=== PATIENT | female | born 1980 | race Caucasian/White ===

== ENCOUNTER → 2019-10-08 08:42 | Outpatient (CLI) | payer BC, SELFPAY ==
--- NOTE | ~2019-10-08 | US_ITS ---
EXAMINATION: US pelvic complete DATE: 10/08/2019 09:04 INDICATION: Menorrhagia TECHNIQUE: Multiple transabdominal sonographic images of the pelvis were obtained. COMPARISON: None. FINDINGS: The uterus measures 10.8 x 4.3 x 5.6 cm. The endometrial complex measures 7 mm. The right o vary measures 3.2 x 2.0 x 2.7 cm. The left ovary measures 2.4 x 2.2 x 2.6 cm. There is normal vascula r flow in the ovaries. There is no free fluid in the pelvis. IMPRESSION: 1. No sonographic correlate for the patient's symptoms. Reviewed, dictated and finalized at location A.
== END ==
PROVIDERS: PCP Physician Assistant; Visit Provider Physician Assistant
DX: N92.1 Excessive and frequent menstruation with irregular cycle (principal)
CPT/HCPCS: 76856

== ENCOUNTER 2020-01-14 02:30 | Outpatient (CLI) | payer BC, SELFPAY ==
[2020-01-14 18:24] LABS: SARS-CoV-2 RNA PCR Negative
== END 2020-01-14 02:31 | disposition home or self-care (01) ==
LOC: ANHCOVIDDT 02:30
PROVIDERS: PCP Physician Assistant; Visit Provider Obstetrics & Gynecology
DX: Z01.812 Encounter for preprocedural laboratory examination (principal); Z20.828 Contact with and (suspected) exposure to other viral communicable diseases
CPT/HCPCS: 87635; C9803; U0003

== ENCOUNTER 2020-01-16 00:57 | Day surgery (SDC) | payer BC, SELFPAY ==
[2020-01-07 11:44] VITALS: BMI 35.4
[2020-01-16] VITALS (12 sets, daily range): BP systolic 113–135; BP diastolic 58–93; PULSE 59–78; RESP 12–20; TEMP 36.2–36.6; O2SAT 96–100
--- NOTE | 2020-01-16 11:39 | P.HP_ITS ---
History of Present Illness History of Present Illness Consent: Risks, benefits, and alternatives have been discussed and questions answered. Patient agrees to proceed with procedure. Chief complaint: Menorrhagia, Desires Sterilization Narrative: Marlin Hilliard is a 39 year old female A1 with heavy menstrual cycles and desires permanent sterilization. Patient declines hormone therapy. [facility] Past Medical History Medical History (Updated 01/16/20 @ 11:41 by Matt Alonzo MD) Abnormal uterine bleeding (AUB) Sterilization Surgical History Surgical History (Updated 01/16/20 @ 11:41 by Matt Alonzo MD) History of cholecystectomy Social History Social History Smoking status: Never smoker Spiritual care concerns: No Meds Home Medications and Allergies Home Medications Medication Instructions Recorded Confirmed Type Leg Cramp Supplement 1 cap PO DAILY 01/07/20 History cetirizine 10 mg PO DAILY 01/07/20 01/07/20 History Allergies Allergy/AdvReac Type Severity Reaction Status Date / Time No Known Allergies Allergy Verified 01/07/20 11:45 Exam Const: General: no acute distress Resp: Auscultation: clear to auscultation bilaterally Cardio: Rate: regular rate Rhythm: regular rhythm GI: GI Palp: Yes Soft to palpation Assessment and Plan Assessment and plan (1) History of cholecystectomy: Code(s): Z90.49 - Acquired absence of other specified parts of digestive tract Status: Acute (2) Abnormal uterine bleeding (AUB): Code(s): N93.9 - Abnormal uterine and vaginal bleeding, unspecified Status: Acute Assessment and Plan: scheduled for laparoscopic bilateral salpingectomy and hysteroscopy with mary ablation. Risk and benefits reviewed with patient. (3) Sterilization: Code(s): Z30.2 - Encounter for sterilization Status: Acute
--- NOTE | 2020-01-16 11:43 | WPDHPUPDATE1 ---
History and Physical Update Update Date/Time: 01/16/20 11:43 History and Physical has been reviewed, including an updated exam of the patient. There are NO changes in the patient's condition. Risks, benefits, and alternatives have been discussed and questions answered. Patient agrees to proceed with procedure.
[2020-01-16] MEDS: ACETAMINOPHEN 500 MG TABLET 1000 MG PO (13:20)
--- NOTE | 2020-01-16 13:21 | WPDANESEPPF ---
Anes - Initial Pre Proc Eval Procedure: Operation Date: 01/16/20 15:00 Proposed Procedures p Hysteroscopy,Brittani Ablation - Matt Alonzo MD s Laparoscopy, Bilateral Salpingectomy - Matt Alonzo MD Date/Time: 01/16/20 13:21 Surgeon: Matt Alonzo MD Pre Op Diagnosis: Menorrhagia, Desires Sterilization Patient Data Age: 39 Gender: F Height: 5 ft 3 in Weight: 90.72 kg Allergies Allergy/AdvReac Type Severity Reaction Status Date / Time No Known Allergies Allergy Verified 01/07/20 11:45 Home Medications Medication Instructions Recorded Confirmed Type Leg Cramp Supplement 1 cap PO DAILY 01/07/20 History cetirizine 10 mg PO DAILY 01/07/20 01/07/20 History Patient hx anesthesia problems: none Family hx anesthesia problems: none PMFSH Past Medical History Medical History (Updated 01/16/20 @ 13:21 by Paul Maguire MD) Abnormal uterine bleeding (AUB) Anxiety Migraine Sterilization Surgical History Surgical History (Updated 01/16/20 @ 11:41 by Matt Alonzo MD) History of cholecystectomy Social History Social History Smoking status: Never smoker Spiritual care concerns: No Anes - Eval Final PreProcedure Day of Procedure 01/16/20 13:21 Patient weight: overweight Heart: regular rate and rhythm Lungs: clear to auscultation Airway: Mallampati scale class III Neurological: alert and oriented Last oral intake: >/= 8 hours ASA classification: II Emergent: no Anesthetic plan: proceed Anesthesia type and monitoring: general ETT and standard monitoring Informed Consent: The patient's anesthetic plan and its attendant risks and benefits were discussed with the patient/family/POA. Questions were solicited and answers provided to the satisfaction of the patient/family/POA.
[2020-01-16] MEDS: LACTATED RINGERS 1,000 ML 30 ML IV CONT ×2 (13:25→15:18)
[2020-01-16] MEDS: KETOROLAC 15 MG/ML VIAL (*BKC) IV PUSH (13:28)
--- NOTE | 2020-01-16 15:22 | SUR.OPER ---
450 in 400 out hysteroscope irrigation
[2020-01-16] MEDS: ONDANSETRON INJ 4 MG/2 ML VIAL IV PUSH (16:05)
[2020-01-16] MEDS: diphenhydrAMINE HCl INJ 50 MG/ML VIAL 25 MG IV PUSH (16:18)
[2020-01-16] MEDS: fentaNYL CITRATE INJ (*CRX) 100 MCG/2 ML VIAL 25 MCG IV PUSH ×2 (16:20→17:40)
--- NOTE | 2020-01-17 10:52 | P.OP_ITS ---
Procedure Note - Detailed Date of procedure: 01/17/20 Pre-op diagnosis: Menorrhagia, Desires Sterilization Post-op diagnosis: same Procedure performed: Laparoscopic bilateral salpingectomy and hysteroscopy with the nerve ablation Description of procedure: patient is a 39-year-old female presented for desiring permanent sterilization and menorrhagia. patient is taken to the operating room with IV running for parametria the normal sterile fashion and placed in a dorsal lithotomy position. A bivalve speculum was placed into the vagina and the anterior lip of the cervix was grasped with a single-tooth tenaculum. The uterus was sounded to 8cm. An uterine manipulator was inserted into the cervix. The bivalve speculum was removed. Prior to placing the speculum the bladder which drained 50cc. attention was then turned to the abdom en a 5mm subumbilical incision was made through this care with scalpel. The Veress needle was inserted into the peritoneal cavity and insufflation revealed an opening pressure of [id number] and the peritoneal cavity was then insufflated with CO2 gas to a maximum pressure of 15 the Veress needle was removed and a 5mm mm trocar was introduced without difficulty into the peritoneal cavity through this site. The 5mm laparoscoped was then introduced and visualization confirmed of peritoneal cavity and grossly normal uterus tubes and ovaries. Two 5mm trocars were placed on the right and left lower quadrants under direct visualization. The right tube was grasped at the fimbriated end and the Harmonic scalpel was used to transect and ligate the right tube. Attention was then turned to the left tube which was grasped with the graspers transected and ligated. The hemostasis was assured. The trocars were removed under direct visualization the laparoscope and the umbilical trocar was then removed. The incisions were closed with 4 Vicryl suture. Attention was then turned to the vagina the bypass at home was replaced the uterine manipulator was removed and the anterior lip of the cervix was regrasped with a 9mm. The cervix was dilated with dilators and 8 hysteroscope was introduced noted normal uterine cavity the benefit device was then activated and passed on the 1st attempt. The uterine cavity length was set to 4. The ablation was successful. A hysteroscope was reintroduced and noted ablated ablated cavity. The instruments were removed from the vagina hemostasis was assured. The patient tolerated the procedure well sponge and needle counts were correct x2. Anesthesia: GLMA Surgeon: Matt Alonzo MD Estimated blood loss (mL): 10 Urine output (mL): 50 Drains: No Packing: No Pathology: yes Complications: None Condition: stable Disposition: PACU Findings: Grossly normal tube and ovaries.
== END 2020-01-16 18:50 | disposition home or self-care (01) ==
PROVIDERS: PCP Physician Assistant; Visit Provider Obstetrics & Gynecology
PROC: 0U5B8ZZ Destruction of Endometrium, Via Natural or Artificial Opening Endoscopic (ICD-10-PCS; CPT 58563; principal; 2020-01-16 15:00)
PROC: (CPT 49320; 2020-01-16 15:00)
DX: N93.9 Abnormal uterine and vaginal bleeding, unspecified (principal); Z30.2 Encounter for sterilization; N83.8 Other noninflammatory disorders of ovary, fallopian tube and broad ligament; Z90.49 Acquired absence of other specified parts of digestive tract
CPT/HCPCS: 58661; 58563; 88302; A9270; J1100; J1200; J1885; J2250; J2405; J2704; J2710; J3010; J7030; J7120

== ENCOUNTER 2020-03-23 13:29 | Outpatient (CLI) | payer BC, SELFPAY | END 2020-03-23 13:30 | disposition home or self-care (01) | LOC: ANHSURGERY 13:32 | PROVIDERS: PCP Physician Assistant; Visit Provider Obstetrics & Gynecology | DX: Z01.818 Encounter for other preprocedural examination (principal); N93.9 Abnormal uterine and vaginal bleeding, unspecified | CPT/HCPCS: 36415; 86850; 86900; 86901 ==

== ENCOUNTER 2020-03-26 02:23 | Outpatient (CLI) | payer BC, SELFPAY ==
[2020-03-26 18:46] LABS: SARS-CoV-2 RNA PCR Negative
== END 2020-03-26 02:24 | disposition home or self-care (01) ==
LOC: ANHCOVIDDT 02:23
PROVIDERS: PCP Physician Assistant; Visit Provider Obstetrics & Gynecology
DX: Z01.818 Encounter for other preprocedural examination (principal); Z20.828 Contact with and (suspected) exposure to other viral communicable diseases
CPT/HCPCS: 87635; C9803; U0003

== ENCOUNTER 2020-03-29 01:03 | Day surgery (SDC) | payer BC, SELFPAY ==
[2020-03-22 10:29] VITALS: BMI 33.7
[2020-03-29] VITALS (15 sets, daily range): BP systolic 99–126; BP diastolic 57–86; PULSE 68–88; RESP 12–20; TEMP 36.6–36.9; O2SAT 94–100
--- NOTE | 2020-03-29 11:36 | P.HP_ITS ---
H&P: HPI History of Present Illness Date/Time: 03/29/20 11:36 Chief complaint: Abnormal Uterine Bleeding Narrative: Marlin Hilliard is a 39 year old female A1 with a history of heavy abnormal bleeding s/p tubal with Ablation. Patient presented with complai nts no improvement and bleeding and desires hysterectomy. Review of Systems Review of Systems: All systems reviewed & are unremarkable except as noted in HPI and below PMFSH Past Medical History Medical History (Updated 01/16/20 @ 13:21 by Paul Maguire MD) Abnormal uterine bleeding (AUB) Anxiety Migraine Sterilization Surgical History Surgical History History of cholecystectomy Social History Social History Smoking status: Never smoker Living arrangements: with family Spiritual care concerns: No Meds Home Medications and Allergies Home Medications Medication Instructions Recorded Confirmed Type No Home Medications 03/22/20 03/22/20 History Allergies Allergy/AdvReac Type Severity Reaction Status Date / Time No Known Allergies Allergy Verified 03/22/20 10:15 Exam Const: General: well developed Resp: Auscultation: clear to auscultation bilaterally : Speculum Exam - Vagina: normal appearance of the vagina Speculum Exam - Cervix: normal appearance of the cervix Bimanual exam- vagina & uterus: boggy Bimanual Exam- Adnexa, other: normal adnexae Assessment and Plan Assessment and plan (1) Abnormal uterine bleeding (AUB): Code(s): N93.9 - Abnormal uterine and vaginal bleeding, unspecified Status: Acute Assessment and Plan: scheduled for a laparoscopic assisted vaginal hysterectomy risk and benefits reveiwed in detail including bleeding infection trauma to surrounding organs and anesthesia. Patient agrees to proceed.
--- NOTE | 2020-03-29 12:58 | WPDHPUPDATE1 ---
History and Physical Update Update Date/Time: 03/29/20 12:58 History and Physical has been reviewed, including an updated exam of the patient. There are NO changes in the patient's condition. Risks, benefits, and alternatives have been discussed and questions answered. Patient agrees to proceed with procedure.
[2020-03-29] MEDS: ACETAMINOPHEN 500 MG TABLET 1000 MG PO ×2 (13:10→23:33)
[2020-03-29] MEDS: LACTATED RINGERS 1,000 ML 30 ML IV CONT ×2 (13:28→16:10)
[2020-03-29] MEDS: KETOROLAC 15 MG/ML VIAL (*BKC) IV PUSH (13:28)
--- NOTE | 2020-03-29 13:28 | WPDANESEPPF ---
Anes - Initial Pre Proc Eval Procedure: Operation Date: 03/29/20 14:30 Proposed Procedures p Laparoscopic Assisted Vaginal Hysterectomy - Matt Alonzo MD Date/Time: 03/29/20 13:28 Surgeon: Matt Alonzo MD Pre Op Diagnosis: Abnormal Uterine Bleeding Patient Data Age: 39 Gender: F Height: 1.6 m Weight: 100.2 kg Last Vital Signs Temp 36.6 C 03/29/20 12:50 Pulse 80 03/29/20 12:50 Resp 14 03/29/20 12:50 BP 126/86 03/29/20 12:50 Pulse Ox 100 03/29/20 12:50 Allergies Allergy/AdvReac Type Severity Reaction Status Date / Time No Known Allergies Allergy Verified 03/29/20 13:10 Home Medications Medication Instructions Recorded Confirmed Type No Home Medications 03/22/20 03/29/20 History Patient hx anesthesia problems: none Family hx anesthesia problems: none PMFSH Past Medical History Medical History (Updated 01/16/20 @ 13:21 by Paul Maguire MD) Abnormal uterine bleeding (AUB) Anxiety Migraine Sterilization Surgical History Surgical History History of cholecystectomy Social History Social History Smoking status: Never smoker Living arrangements: with family Spiritual care concerns: No Anes - Eval Final PreProcedure Day of Procedure 03/29/20 13:28 Patient weight: obese Heart: regular rate and rhythm Lungs: clear to auscultation and normal air movement Airway: Mallampati scale class 1 Neurological: alert and oriented Last oral intake: >/= 8 hours ASA classification: II Emergent: no Anesthetic plan: proceed Anesthesia type and monitoring: general ETT and standard monitoring Informed Consent: The patient's anesthetic plan and its attendant risks and benefits were discussed with the patient/family/POA. Questions were solicited and answers provided to the satisfaction of the patient/family/POA.
[2020-03-29] MEDS: ceFAZolin 2 GM/D5W 50 ML 2 GM/50 ML BAG IVPB (14:15)
[2020-03-29] MEDS: LIDO 1%/EPINEPHRINE 1:100,000 20 ML VIAL INFILTRATE (15:05)
[2020-03-29] MEDS: ONDANSETRON INJ 4 MG/2 ML VIAL IV PUSH (16:31)
--- NOTE | 2020-03-29 17:30 | PC.NURSE ---
Pt admitted to floor at 1730 per bed. Alert and oriented x3.
[2020-03-29] MEDS: DEXTROSE 5%/LACTATED RINGERS 1,000 ML 125 ML IV CONT (17:59)
[2020-03-29] MEDS: KETOROLAC 30 MG/ML VIAL (*BKC) IV PUSH (19:44)
[2020-03-30] VITALS: BP 115/73; PULSE 84; RESP 16; TEMP 37.1; O2SAT 97
[2020-03-30] MEDS: IBUPROFEN 600 MG TABLET PO ×2 (01:44→08:42)
[2020-03-30 05:00] VITALS: BP 119/65; PULSE 88; RESP 18; TEMP 37.1; O2SAT 97
[2020-03-30 05:22] LABS: Basophils Percent Auto 0.1 % (0.2-1.2); Hematocrit 37.1 % (37.0-47.0); Hemoglobin 12.5 g/dL (12.0-15.0); Immature Granulocyte Absolute 0.05 K/mm3 (0.00-0.031); Immature Granulocyte Percent A 0.4 % (0-0.5); Lymphocytes Absolute Auto 0.87 K/mm3 (0.9-3.2); Lymphocytes Percent Auto 7.7 % (18.3-44.2); Mean Corpuscular HGB Conc 33.7 g/dl (32-36); Mean Corpuscular Hemoglobin 26.7 pg (26-34); Mean Corpuscular Volume 79.1 fl (80-100); Mean Platelet Volume 9.3 fl (7.4-10.4); Monocytes Absolute Auto 0.6 K/mm3 (0.1-0.6); Monocytes Percent Auto 5.4 % (2.6-8.5); Neutrophils Absolute Auto 9.7 K/mm3 (1.3-6.7); Neutrophils Percent Auto 86.4 % (45.5-73.1); Platelet Count Result 327 k/mm3 (150-375); Red Blood Count 4.69 M/mm3 (4.2-5.4); Red Cell Distribution Width 13.9 % (11.5-14.5); White Blood Count 11.3 K/mm3 (4.5-10.0)
[2020-03-30 05:47] LABS: Anion Gap 4 mmol/L (8-16); Blood Urea Nitrogen 9 mg/dL (7-17); Calcium 8.9 mg/dL (8.4-10.2); Carbon Dioxide 26 mmol/L (22-30); Chloride 103 mmol/L (98-107); Estimated CRCL calculation 92 ml/min; Estimated Glomerular Filt Rate > 60; Glucose 101 mg/dL (65-105); Potassium 4.4 mmol/L (3.4-5.0); Sodium 133 mmol/L (137-145)
[2020-03-30 07:50] VITALS: BP 102/65; PULSE 88; RESP 16; TEMP 36.8; O2SAT 96
--- NOTE | 2020-04-14 12:58 | PM.PROC ---
Procedure Note - Detailed Date of procedure: 04/14/20 Pre-op diagnosis: Abnormal Uterine Bleeding Post-op diagnosis: same Procedure performed: Laparoscopic assisted vaginal hysterectomy Description of procedure: patient was taken to the operating room with IV running prepped and draped in a normal sterile fashion after given general anesthesia she was placed in the dorsal lithotomy position. The abdomen perineum and vagina were prepped and draped in usual sterile fashion a Haque catheter into the bladder and attached to a straight drainage after initial preparation. a bivalve speculum was placed into the vagina anterior lip of the cervix was grasped with a single-tooth tenaculum. A uterine manipulator was placed into the cervix. [place] speculum was removed. Attention was then turned to the abdomen. A 5mm incision was made with the scalpel at the infraumbilical fold. the Veress needle was gently advanced taking care to feel for typical sensation are penetration of the peritoneum. With CO2 infiltration and an opening pressure of less than 6mm is noted and a peritoneal a 15mm was created. A 5mm trocar was then passed through the same incision and the laparoscopic was then inserted through the trocar sleeve. Visual parent visualization of the peritoneal cavity was then obtained and showed normal cavity and under direct observation 5mm ports were placed in the right and left sides. Beginning on the right side and distally along the length of the fallopian tube to the mesosalpinx and lifting the tube the mesosalpinx was then sequentially clamped ligated and cut using the Harmonic scalpel alongside the length of the tubing towards the cornu. At the level of the cornu was reached attention was then turned to the other side same process was repeated on the left initially clamping widening cutting the mesosalpinx being sure to not injure the adjacent ovarian tissue or the surrounding structures. The round ligament was then ligated and cut following this anterior leaf of the broad ligament was then taken down on both sides dissected down towards the peritoneal reflection in the base of the bladder and adjacent to the cervix. The same process was then repeated on the left side an had been appropriately skeletonized. To ensure excellent hemostasis prior to the transection and ligation of the pedicles. The uterine vessels and cardinal ligament was then ligated and divided on each side using the Harmonic scalpel. Attention was then turned to the vaginal aspect of the surgery the Haque catheter was removed weighted speculum was placed in the posterior aspect of the vagina and the vaginal manipulator was removed. The tenaculum repositioned anteriorly and posteriorly a circumferential incision was made after injecting with 1% lidocaine with and pain and this incision was made at the cervical vaginal reflection using a scalpel. This was undermined 1st anteriorly and colpotomy made without difficulty this was then repeated. Elia retractors were then placed into each of these incisions beginning 1st on the patient's left uterosacral and cardinal ligaments were clamped divided and suture ligated 2 bites were required breech from the previous dissection margin of the left the same process was then repeated on the patient's right side and the specimen was completely free once the sutures had been placed and the pedicle secured the uterus along with both tubes were removed transvaginally without difficulty all pedicles were inspected and hemostasis was confirmed the vaginal vault was then oversewn with a running locking suture of 0 Vicryl securing 1st the posterior edge of the cuff followed by the anterior. The vagina was packed. And using a laparoscopic, the abdomen was carefully reinspected insuring complete hemostasis. abdomen was inspected the ports were then removed under direct visualization and the incisions were closed with 4 Vicryl suture. Estimated blood loss was approxi
== END 2020-03-30 10:05 | disposition home or self-care (01) ==
LOC: ANHSURGERY 12:25 → ANHOB2 17:27
PROVIDERS: PCP Physician Assistant; Visit Provider Obstetrics & Gynecology
PROC: 0UT9FZZ Resection of Uterus, Via Natural or Artificial Opening With Percutaneous Endoscopic Assistance (ICD-10-PCS; CPT 58550; principal; 2020-03-29 14:30)
DX: N93.9 Abnormal uterine and vaginal bleeding, unspecified (principal); N80.0 Endometriosis of uterus; N73.6 Female pelvic peritoneal adhesions (postinfective); E66.9 Obesity, unspecified; Z68.39 Body mass index [BMI] 39.0-39.9, adult
CPT/HCPCS: 58550; 36415; 80048; 85025; 88307; 99199; A9270; J0690; J1100; J1170; J1885; J2250; J2405; J2704; J2710; J3010; J7120; J7121